=== PATIENT | female | born 1985 | race Caucasian/White ===

== ENCOUNTER → 2016-10-26 | Outpatient (CLI) | payer MEDICAID | LOC: RAD 11:43 | DX: N63 Unspecified lump in breast (principal); N60.01 Solitary cyst of right breast ==

== ENCOUNTER 2017-06-16 19:53 | Emergency (ER) | payer MEDICAID ==
[~2017-06-16] VITALS: Ht 167.6 cm; Wt 50.0 kg
[2017-06-16 20:04] VITALS: BP 133/93
[2017-06-16] MEDS ORDERED: SYNTHROID0.05 MG PO (20:09)
[2017-06-16] MEDS ORDERED: LESSINA 28 0.021 TAB PO (20:09)
[2017-06-16] MEDS ORDERED: LOPRESSOR 225 MG/TAB PO (20:09)
== END 2017-06-16 20:32 | disposition home or self-care (01) ==
LOC: ED 19:53
DX: S29.011A Strain of muscle and tendon of front wall of thorax, initial encounter (principal); E03.9 Hypothyroidism, unspecified; Z88.1 Allergy status to other antibiotic agents; Z88.0 Allergy status to penicillin